=== PATIENT | female | born 1945 | race Hispanic/Latino ===

== ENCOUNTER 2016-09-30 16:59 | Emergency (ER) | payer MEDICARE, OTHER ==
[2016-09-30 17:07] VITALS: BP 137/102; PULSE 56; RESP 18; TEMP 97.3; O2SAT 85
--- NOTE | 2016-09-30 17:52 | ED PDOC ---
HPI: General Adult Time Seen by Provider: 09/30/16 17:09 Chief Complaint (Nursing): Trauma Chief Complaint (Provider): head injury, weakness of legs History Per: Patient, EMS Additional Complaint(s): 70 year old female presents to ED for eval of head injury. Patient was [place] the [employer] when her legs gave out of her causing her to hit her head against a metal railing. She did not sustain LOC. Patient denies any other injuries. Patient called ambulance and was brought here. Patient has chronic low back pain and leg pain and she states over the past few weeks her legs have felt weaker. She also states she has had chest pain on and off for the past 6 months associated with cough. She states she smokes 2 ppd. Patient also states that she is having a problem at home where she is hearing banging noises on her property and she thinks someone is harassing her. She states the problem has been ongoing for the past 6 weeks and when she calls the police they don't do anything for her. Patient is in tears explaining the situation. She denies suicidal or homicidal ideation. Past Medical History Reviewed: Historical Data, Nursing Documentation, Vital Signs Vital Signs: Last Vital Signs Temp 97.3 F L 09/30/16 17:02 Pulse 56 L 09/30/16 17:02 Resp 18 09/30/16 17:02 BP 137/102 H 09/30/16 17:02 Pulse Ox 85 L 09/30/16 18:21 - Medical History PMH: Anxiety, Bipolar Disorder, Depression, Diabetes, Hypercholesterolemia - Surgical History Other surgeries: hysterectomy, oophorectomy, lymph node removal from left groin - Family History Family History: States: No Known Family Hx - Living Arrangements Living Arrangements: With Family - Social History Current smoker - smoking cessation education provided: Yes (2 ppd) Alcohol: None Drugs: Denies - Home Medications Home Medications: Ambulatory Orders Medication Instructions Recorded Famotidine [Pepcid] 20 mg PO BID #28 tab 03/03/15 - Allergies Allergies/Adverse Reactions: Allergies Allergy/AdvReac Type Severity Reaction Status Date / Time No Known Allergies Allergy Verified 09/30/16 17:02 Review of Systems ROS Statement: Except As Marked, All Systems Reviewed And Found Negative Constitutional: Negative for: Fever, Chills Cardiovascular: Positive for: Chest Pain (on and off for 6 months) Respiratory: Positive for: Cough (chronic). Negative for: Shortness of Breath Gastrointestinal: Negative for: Vomiting Neurological: Positive for: Other (head injury with no LOC) Physical Exam - Reviewed Nursing Documentation Reviewed: Yes Vital Signs Reviewed: Yes - Physical Exam Appears: Positive for: Well, Non-toxic, No Acute Distress Head Exam: Positive for: ATRAUMATIC, NORMAL INSPECTION Skin: Positive for: Rash Eye Exam: Positive for: Normal appearance Neck: Positive for: Normal Cardiovascular/Chest: Positive for: Regular Rate, Rhythm Respiratory: Positive for: Decreased Breath Sounds. Negative for: Accessory Muscle Use, Respiratory Distress Back: Negative for: L CVA Tenderness, R CVA Tenderness, Vertebral Tenderness Extremity: Positive for: Normal ROM. Negative for: Pedal Edema, Calf Tenderness , Swelling Neurologic/Psych: Positive for: Alert, Oriented, Mood/Affect (tearful, anxious) - ECG Interpretation Of ECG: NSR 96 bpm, no acute finding, reviewed by PA and ED attending. O2 Sat by Pulse Oximetry: 85 Pulse Ox Interpretation: Normal (patient is no resp distress) Medical Decision Making Medical Decision Makin70 year old with head injury, leg pain and chest pain Plan: CBC CMP Trop CXR EKG CT head Fingerstick: 201 Patient was offered crisis consult but she declined, she denies SI or HI. Disposition - Clinical Impression Clinical Impression: Head injury - Patient ED Disposition Is Patient to be Admitted: No - Disposition Disposition: Transfer of Care Disposition Time: 19:00 Condition: STABLE Forms: [facility] ([place]) Patient Signed Over To: Diamante York Handoff Comments: Signed out to [facility] York pending diagnostic testing results and final disposition
[2016-09-30 18:38] LABS: BASO # 0.1 K/uL (0.0-0.2); BASO % 0.8 % (0.0-2.0); EOS # 0.2 K/uL (0.0-0.7); EOS % 2.2 % (0.0-4.0); HEMATOCRIT 44.4 % (34.0-47.0); LYMPH # 2.4 K/uL (1.0-4.3); LYMPH % 22.9 % (20.0-40.0); MEAN CELL VOLUME 94.7 fl (81.0-99.0); MEAN CORPUSCULAR HEMOGLOBIN 31.7 pg (27.0-31.0); MEAN CORPUSCULAR HGB CONC 33.5 g/dL (33.0-37.0); MEAN PLATELET VOLUME 7.8 fl (7.2-11.7); MONO # 0.7 K/uL (0.0-0.8); MONO % 6.3 % (0.0-10.0); NEUT # 7.2 K/uL (1.8-7.0); NEUT % 67.8 % (50.0-75.0); NRBC % 0.1 % (0.0-0.0); RED CELL DISTRIBUTION WIDTH 13.1 % (11.5-14.5); WHITE BLOOD COUNT 10.6 K/uL (4.8-10.8)
[2016-09-30 18:59] LABS: ALB/GLOB RATIO 1.3 (1.0-2.1); ALKALINE PHOSPHATASE 133 U/L (38-126); ALT/SGPT 40 U/L (9-52); AST/SGOT 25 U/L (14-36); BILIRUBIN,TOTAL 0.5 mg/dl (0.2-1.3); BLOOD UREA NITROGEN 14 mg/dl (7-17); CALCIUM 9.6 mg/dL (8.4-10.2); CARBON DIOXIDE 27 mmol/L (22-30); CHLORIDE 101 mmol/L (98-107); GFR AFRICAN-AMERICAN > 60; GLUCOSE,RANDOM 171 mg/dL (65-105); POTASSIUM 3.9 MMOL/L (3.6-5.0); SODIUM 137 mmol/l (132-148); TOTAL PROTEIN 7.8 G/DL (6.3-8.2)
--- NOTE | 2016-09-30 19:15 | ED PDOC ---
- Laboratory Results Result Diagrams: 09/30/16 18:27 Medical Decision Making Medical Decision Making: Pt comes to the ER after a fall. Pt states her legs have been weak for a few weeks and they gave out. Patient pending labs and head CT. Pt not in room at 1900. Pt has history of bipolar and denies SI/HI. PT states she has been taking her medications as prescribed and does not want to see crisis for evaluation. Pt states she is upset because her roommate is moving out and she does not want to get lonely at home. Disposition - Clinical Impression Clinical Impression: Head injury - POA Present On Arrival: None - Disposition Disposition: Left W/O Treatment Disposition Time: 19:00 Condition: STABLE Forms: [facility] (Thai)
== END 2016-09-30 19:00 | disposition left against medical advice (07) ==
LOC: H.ER 16:59
DX: S09.90XA Unspecified injury of head, initial encounter (principal); W19.XXXA Unspecified fall, initial encounter; Y92.89 Other specified places as the place of occurrence of the external cause; E11.9 Type 2 diabetes mellitus without complications; E78.00 Pure hypercholesterolemia, unspecified; F31.9 Bipolar disorder, unspecified; F41.9 Anxiety disorder, unspecified

== ENCOUNTER 2016-10-14 20:34 | Emergency (ER) | payer MEDICARE, OTHER ==
[2016-10-14 20:40] VITALS: BMI 27.4
[2016-10-14 20:42] VITALS: RESP 16; TEMP 98.9
[2016-10-14] MEDS ORDERED: Sodium Chloride 0.9% 500 ML IV ONE (21:01)
--- NOTE | 2016-10-14 21:05 | ED PDOC ---
HPI: Headache Time Seen by Provider: 10/14/16 20:50 Chief Complaint (Nursing): Headache Chief Complaint (Provider): HEADACHE History Per: Patient (70 Y/O FEMALE H/O BIPOLAR DISORDER; HTN;DM HERE WITH COMPLAINT OF ONGOING HEADACHE X 2 MONTHS SUPERIOR ASPECT OF HEADACHE AND OCCIPITAL EXCRUCIATING TODAY. PATIENT TOOK MOTRIN 800MG 1.5 HOURS PRIOR TO ED ARRIVAL WITH MILD RELIEF OF HEADACHE. STATES SHE IS VISITING NEUROLOGIST WHO BELIEVES IT MAY BE 'OCCIPITAL NEURALGIA' ) Past Medical History Reviewed: Historical Data, Nursing Documentation, Vital Signs Vital Signs: Last Vital Signs Temp 98.9 F 10/14/16 20:40 Pulse 111 H 10/14/16 20:40 Resp 16 10/14/16 20:40 BP 166/100 H 10/14/16 20:40 Pulse Ox 98 10/14/16 20:40 - Medical History PMH: Anxiety, Bipolar Disorder, Depression, Diabetes, Hypercholesterolemia Denies: Asthma, HTN, Chronic Kidney Disease - Family History Family History: States: Unknown Family Hx - Home Medications Home Medications: Ambulatory Orders Medication Instructions Recorded Famotidine [Pepcid] 20 mg PO BID #28 tab 03/03/15 - Allergies Allergies/Adverse Reactions: Allergies Allergy/AdvReac Type Severity Reaction Status Date / Time No Known Allergies Allergy Verified 10/14/16 20:40 Review of Systems ROS Statement: Except As Marked, All Systems Reviewed And Found Negative Physical Exam - Reviewed Nursing Documentation Reviewed: Yes Vital Signs Reviewed: Yes - Physical Exam Appears: Positive for: Well, Non-toxic, No Acute Distress Head Exam: Positive for: ATRAUMATIC, NORMAL INSPECTION, NORMOCEPHALIC Skin: Positive for: Normal Color, Warm, DRY Eye Exam: Positive for: EOMI, Normal appearance, PERRL ENT: Positive for: Normal ENT Inspection Neck: Positive for: Normal, Painless ROM Cardiovascular/Chest: Positive for: Regular Rate, Rhythm Respiratory: Positive for: CNT, Normal Breath Sounds Gastrointestinal/Abdominal: Positive for: Normal Exam, Bowel Sounds, Soft Back: Positive for: Normal Inspection Extremity: Positive for: Normal ROM Neurologic/Psych: Positive for: Alert, Oriented - Laboratory Results Result Diagrams: 10/14/16 21:18 10/14/16 21:30 - ECG ECG Rhythm: Positive for: Sinus Rhythm (NSR 75BPM; NONSPECIFIC T WAVE ABNORMALITY NOTED NO CHANGE SINCE PRIOR EKG [address] ELDER.) O2 Sat by Pulse Oximetry: 98 - Progress ED Course And Treament: HEAD CT: FINDINGS: Motion/beam hardening artifact. Brain: Atrophy. Periventricular white matter hypoattenuation most consistent with chronic ischemic small vessel changes. Vascular calcification. No hemorrhage. No edema. Ventricles: No hydrocephalus. Bones: Skull is intact. Partial visualization of deviation of nasal septum to the right. Sinuses: Minimal fluid in right sphenoid sinus. Mastoid air cells: No mastoid effusion. IMPRESSION: No CT evidence of acute intracranial abnormality. Please see additional details/findings as above. Correlate clinically. Followup as warranted. Thank you for allowing us to participate in the care of your patient. REGLAN 10 MG I VX 1 DOSE PEPCID 20 MG IV X 1 DOSE NS 500 ML IV BOLUS. PATIENT RE-EXAMINED 23:22. STATES HEADACHE RESOLVED. Disposition - Clinical Impression Clinical Impression: Headache - Patient ED Disposition Is Patient to be Admitted: No - Disposition Disposition: Routine/Home Disposition Time: 23:33 Condition: FAIR Instructions: Migraine Headache (ED) Forms: [employer] ([place])
[2016-10-14 21:23] LABS: BASO # 0.1 K/uL (0.0-0.2); BASO % 1.3 % (0.0-2.0); EOS # 0.2 K/uL (0.0-0.7); EOS % 2.4 % (0.0-4.0); HEMOGLOBIN 14.9 g/dL (12.0-16.0); LYMPH # 3.4 K/uL (1.0-4.3); LYMPH % 34.7 % (20.0-40.0); MEAN CELL VOLUME 93.5 fl (81.0-99.0); MEAN CORPUSCULAR HEMOGLOBIN 31.9 pg (27.0-31.0); MEAN CORPUSCULAR HGB CONC 34.1 g/dL (33.0-37.0); MEAN PLATELET VOLUME 7.9 fl (7.2-11.7); MONO # 0.6 K/uL (0.0-0.8); NEUT # 5.5 K/uL (1.8-7.0); NEUT % 55.6 % (50.0-75.0); RBC 4.66 Mil/uL (3.80-5.20); RED CELL DISTRIBUTION WIDTH 12.9 % (11.5-14.5); WHITE BLOOD COUNT 9.9 K/uL (4.8-10.8)
[2016-10-14 22:03] LABS: ALB/GLOB RATIO 1.3 (1.0-2.1); ALT/SGPT 31 U/L (9-52); AST/SGOT 49 U/L (14-36); BLOOD UREA NITROGEN 16 mg/dl (7-17); CALCIUM 9.4 mg/dL (8.4-10.2); GFR AFRICAN-AMERICAN > 60; GFR NON-AFRICAN AMERICAN > 60; LIPASE 143 U/L (23-300)
--- NOTE | 2016-10-14 22:20 | CT ---
EXAM: CT Head Without Intravenous Contrast CLINICAL HISTORY: 70 years old, female; Pain; Headache; Other: Hurst's; Patient HX: Hurst's. Hnt. Dm. Hysterectomy dx ca. B/l hips; Additional info: Headache x months TECHNIQUE: Axial computed tomography images of the head/brain without intravenous contrast. All CT scans at this facility use one or more dose reduction techniques, viz.: automated exposure control; ma/kV adjustment per patient size (including targeted exams where dose is matched to indication; i.e. head); or iterative reconstruction technique. Coronal and sagittal reformatted images were created and reviewed. COMPARISON: CT - HEAD W/O CONTRAST 12/08/2014 8:10:44 AM FINDINGS: Motion/beam hardening artifact. Brain: Atrophy. Periventricular white matter hypoattenuation most consistent with chronic ischemic small vessel changes. Vascular calcification. No hemorrhage. No edema. Ventricles: No hydrocephalus. Bones: Skull is intact. Partial visualization of deviation of nasal septum to the right. Sinuses: Minimal fluid in right sphenoid sinus. Mastoid air cells: No mastoid effusion. IMPRESSION: No CT evidence of acute intracranial abnormality. Please see additional details/findings as above. Correlate clinically. Followup as warranted.
[2016-10-14 23:27] VITALS: BP 133/55; PULSE 85
[2016-10-14 23:34] VITALS: O2SAT 98
--- NOTE | 2016-10-15 10:30 | CARD ---
APPROVED REPORT EKG Measurement Heart [id number] <Conclusion> Sinus rhythm with premature atrial complexes Cannot rule out Anteroseptal infarct, age undetermined Prolonged QT Abnormal ECG
== END 2016-10-14 23:42 | disposition home or self-care (01) ==
LOC: H.ER 20:34
DX: R51 Headache (principal)
CPT/HCPCS: 70450; 80053; 83690; 84484; 85025; 93005; 96361; 96374; 96375; 99284; J2765; J7040

== ENCOUNTER 2017-03-05 20:10 | Emergency (ER) | payer MEDICARE, OTHER ==
[2017-03-05 20:10] VITALS: BMI 27.4
[2017-03-05 20:15] VITALS: RESP 18; TEMP 98.6; O2SAT 99
--- NOTE | 2017-03-05 22:56 | ED PDOC ---
HPI: Psych/Substance Abuse Time Seen by Provider: 03/05/17 20:21 Chief Complaint (Nursing): Psychiatric Evaluation Chief Complaint (Provider): Denies complaint History Per: Patient History/Exam Limitations: no limitations Additional Complaint(s): Pt denies complaint. 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 Pt states she has not spoken to daughter on a regular basis in years. Pt calm and cooperative in ER. Past Medical History Reviewed: Historical Data, Nursing Documentation, Vital Signs Vital Signs: Last Vital Signs Temp 98.6 F 03/05/17 20:11 Pulse 120 H 03/05/17 20:11 Resp 18 03/05/17 20:11 BP 132/78 03/05/17 20:11 Pulse Ox 99 03/05/17 20:11 - Medical History PMH: Anxiety, Bipolar Disorder, Depression, Diabetes, Hypercholesterolemia, Migraine Denies: Asthma, HTN, Chronic Kidney Disease - Surgical History Surgical History: No Surg Hx - Family History Family History: States: Unknown Family Hx - Living Arrangements Living Arrangements: With Family - Social History Current smoker - smoking cessation education provided: No - Home Medications Home Medications: Ambulatory Orders Medication Instructions Recorded Famotidine [Pepcid] 20 mg PO BID #28 tab 03/03/15 - Allergies Allergies/Adverse Reactions: Allergies Allergy/AdvReac Type Severity Reaction Status Date / Time No Known Allergies Allergy Verified 10/14/16 20:40 Review of Systems ROS Statement: Except As Marked, All Systems Reviewed And Found Negative Constitutional: Negative for: Fever, Chills Cardiovascular: Negative for: Chest Pain Respiratory: Negative for: Cough Gastrointestinal: Negative for: Nausea, Vomiting, Abdominal Pain Psych: Negative for: Depression, Psychosis, Suicidal ideation Physical Exam - Reviewed Nursing Documentation Reviewed: Yes Vital Signs Reviewed: Yes - Physical Exam Appears: Positive for: Well, Non-toxic, No Acute Distress Head Exam: Positive for: ATRAUMATIC, NORMAL INSPECTION, NORMOCEPHALIC Skin: Positive for: Normal Color, Warm, DRY Eye Exam: Positive for: Normal appearance ENT: Positive for: Normal ENT Inspection Neck: Positive for: Normal, Painless ROM Cardiovascular/Chest: Positive for: Regular Rate, Rhythm Respiratory: Positive for: CNT, Normal Breath Sounds Back: Positive for: Normal Inspection Extremity: Positive for: Normal ROM Neurologic/Psych: Positive for: Alert, Oriented - ECG O2 Sat by Pulse Oximetry: 99 Medical Decision Making Medical Decision Making: Crisis evaluation completed. Disposition - Clinical Impression Clinical Impression: Encounter for psychiatric assessment, History of bipolar disorder - Patient ED Disposition Is Patient to be Admitted: No Counseled Patient/Family Regarding: Diagnosis, Need For Followup - Disposition Disposition: Routine/Home Disposition Time: 22:55 Condition: GOOD Instructions: Bipolar Disorder (ED)
[2017-03-05 23:06] VITALS: BP 155/80; PULSE 99
== END 2017-03-05 23:07 | disposition home or self-care (01) ==
LOC: H.ER 20:10
DX: F31.9 Bipolar disorder, unspecified (principal); F41.9 Anxiety disorder, unspecified; E11.9 Type 2 diabetes mellitus without complications; E78.00 Pure hypercholesterolemia, unspecified